=== PATIENT | male | born 1980 | race Caucasian/White ===

== ENCOUNTER 2017-06-14 10:19 | Emergency (ER) | payer OTHER ==
[~2017-06-14] VITALS: Ht 175.3 cm; Wt 104.3 kg
[~2017-06-14 10:19] MED LIST: CYCL10 PO; HYDACE5 PO
[2017-06-14] MEDS ORDERED: IBUP800 PO (11:31)
[2017-06-14] MEDS ORDERED: Prednisone20 MG PO (11:31)
[2017-06-14] MEDS ORDERED: Norco 5-325 Ta1 EACH PO (11:31)
[2017-06-14] MEDS ORDERED: CYCL10 PO (11:31)
== END 2017-06-14 11:43 | disposition home or self-care (01) ==
LOC: ER 10:19
DX: M54.12 Radiculopathy, cervical region (principal); F17.200 Nicotine dependence, unspecified, uncomplicated
CPT/HCPCS: 96372; 99283; J1885

== ENCOUNTER 2019-03-04 09:10 | Emergency (ER) | payer OTHER ==
[~2019-03-04] VITALS: Ht 175.3 cm; Wt 104.3 kg
[~2019-03-04 09:10] MED LIST changes: +IBUP800 PO; +Norco 5-325 Ta1 EACH PO; +Prednisone20 MG PO
[2019-03-04 10:05] LABS: Calcium, Ionized (POC) 1.12 mmol/L (1.10-1.46); Chloride (POC) 104 mmol/L (98-108); Creatinine (POC) 1.1 mg/dL (0.8-1.3); Glucose (ISTAT POC) 97 mg/dL (70-99); Hemoglobin (POC) 13.6 g/dL (13.5-17.5); Potassium (POC) 3.7 mmol/L (3.5-5.5); Sodium (POC) 139 mmol/L (135-148); Total CO2 (POC) 24 mmol/L (21-32)
[2019-03-04 10:08] LABS: Source, Urine Clean Catch
[2019-03-04 10:12] LABS: Blood, Urine 1+ (Neg); Glucose Qualitative, Urine Neg (Neg); Ketones, Urine 1+ (Neg); Leukocyte Esterase, Urine 1+ (Neg); Nitrite, Urine Neg (Neg); Protein, Urine 2+ (Neg); Specific Gravity, Urine 1.015 (1.003-1.022); Urobilinogen, Urine 2+ (Normal)
[2019-03-04 10:18] LABS: Appearance, Urine Hazy (Clear); Bilirubin, Urine 1+ (Neg); Color, Urine Amber (P-Yellow)
[2019-03-04 10:20] LABS: Red Blood Cells, Urine 0-2 /hpf (0-2)
[2019-03-04 10:21] LABS: Bacteria Mod /hpf; Mucus Mod (0-Heavy); Squamous Epithelial Cells Rare /hpf (Few)
[2019-03-04] MEDS ORDERED: Colace100 MG PO (10:33)
[2019-03-04] MEDS ORDERED: Bactrim Ds Tab1 EACH PO (10:33)
== END 2019-03-04 10:46 | disposition home or self-care (01) ==
LOC: ER 09:10
PROVIDERS: Emergency Medicine
DX: K59.00 Constipation, unspecified (principal); F17.200 Nicotine dependence, unspecified, uncomplicated
CPT/HCPCS: 51798; 80047; 81001; 85014; 87086; 99283-25; A9270-GY

== ENCOUNTER → 2019-03-20 | Outpatient (CLI) | payer OTHER ==
[~2019-03-20] MED LIST changes: +Bactrim Ds Tab1 EACH PO; +Colace100 MG PO
[2019-03-20 18:49] LABS: Adenovirus F 40/41 Not Detected (NOT DETECT); Astrovirus Not Detected (NOT DETECT); Campylobacter Sp Not Detected (NOT DETECT); Cryptosporidium Not Detected (NOT DETECT); Cyclospora Cayetanensis Not Detected (NOT DETECT); E. Coli O157 Not Detected (NOT DETECT); Entamoeba Histolytica Not Detected (NOT DETECT); Enteroaggregative E. coli-EAEC Not Detected (NOT DETECT); Enteropathogenic E. coli-EPEC Not Detected (NOT DETECT); Enterotoxigenic E. coli-ETEC Not Detected (NOT DETECT); Giardia Lamblia Not Detected (NOT DETECT); Norovirus GI/GII Not Detected (NOT DETECT); Plesiomonas Shigelloides Not Detected (NOT DETECT); Rotavirus A Not Detected (NOT DETECT); Salmonella Sp Not Detected (NOT DETECT); Sapovirus Not Detected (NOT DETECT); Shiga Toxin-prod E. coli-STEC Not Detected (NOT DETECT); Shigella/Enteroin E. coli-EIEC Not Detected (NOT DETECT); Vibrio Cholerae Not Detected (NOT DETECT); Vibrio Sp Not Detected (NOT DETECT); Yersinia Enterocolitica Not Detected (NOT DETECT)
== END ==
LOC: LAB EV 12:38
PROVIDERS: Physician Assistant Medical
DX: R19.7 Diarrhea, unspecified (principal)
CPT/HCPCS: 0097U

== ENCOUNTER 2019-04-05 09:12 | Inpatient (IN) | payer OTHER ==
[~2019-04-05] VITALS: Ht 172.7 cm; Wt 100.7 kg
[2019-04-05 10:05] LABS: Source, Urine Clean Catch
[2019-04-05 10:07] LABS: Bilirubin, Urine Neg (Neg); Blood, Urine 1+ (Neg); Glucose Qualitative, Urine Neg (Neg); Ketones, Urine Neg (Neg); Leukocyte Esterase, Urine 1+ (Neg); Nitrite, Urine Neg (Neg); Protein, Urine 2+ (Neg); Specific Gravity, Urine 1.015 (1.003-1.022); Urobilinogen, Urine NORM (Normal)
[2019-04-05 10:13] LABS: Appearance, Urine Clear (Clear); Color, Urine Yellow (P-Yellow)
[2019-04-05 10:17] LABS: Bacteria Few /hpf; Mucus Light (0-Heavy); Red Blood Cells, Urine 0-2 /hpf (0-2); Squamous Epithelial Cells Few /hpf (Few)
[2019-04-05 10:35] LABS: Calcium, Ionized (POC) 0.99 mmol/L (1.10-1.46); Chloride (POC) 96 mmol/L (98-108); Creatinine (POC) 1.3 mg/dL (0.8-1.3); Glucose (ISTAT POC) 110 mg/dL (70-99); Potassium (POC) 2.8 mmol/L (3.5-5.5); Sodium (POC) 134 mmol/L (135-148); Total CO2 (POC) 26 mmol/L (21-32)
[2019-04-05 11:09] LABS: BASOPHILS ABSOLUTE AUTO 0.07 K/mm3 (0.00-0.23); BASOPHILS PERCENT AUTO 1 % (0-2); EOSINOPHILS ABSOLUTE AUTO 0.06 K/mm3 (0.00-0.68); EOSINOPHILS PERCENT AUTO 1 % (0-6); Hematocrit 42.5 % (37.0-53.0); Hemoglobin 14.6 g/dL (13.5-17.5); IMMATURE GRAN ABSOLUTE AUTO 0.09 K/mm3 (0.00-0.10); IMMATURE GRAN PERCENT AUTO 1 % (0-1); LYMPHOCYTES ABSOLUTE AUTO 3.48 K/mm3 (0.84-5.20); LYMPHOCYTES PERCENT AUTO 39 % (21-46); MONOCYTES ABSOLUTE AUTO 0.81 K/mm3 (0.16-1.47); MONOCYTES PERCENT AUTO 9 % (4-13); Mean Corpuscular HGB 28.9 pg (26.0-34.0); Mean Corpuscular HGB Conc 34.4 g/dL (31.5-36.5); Mean Corpuscular Volume 84 fL (80-100); Mean Platelet Volume 8.5 fL (9.1-12.4); NEUTROPHILS ABSOLUTE AUTO 4.53 K/mm3 (1.96-9.15); NEUTROPHILS PERCENT AUTO 50 % (41-73); Platelet Count 408 K/mm3 (150-400); RDW Coefficient Variation 12.5 % (11.7-14.2); Red Blood Cell Count 5.06 M/mm3 (4.30-5.90); White Blood Cell Count 9.04 K/mm3 (4.00-11.30)
[2019-04-05 11:53] LABS: Albumin, Blood 2.5 g/dL (3.4-5.0); Anion Gap 9 mmol/L (6-16); Blood Urea Nitrogen 14 mg/dL (8-24); Bun/Creatinine Ratio 11.6 (12.0-20.0); CO2, Blood 25 mmol/L (21-32); Calcium, Blood 8.7 mg/dL (8.5-10.1); Chloride, Blood 100 mmol/L (98-108); Creatinine, Blood 1.21 mg/dL (0.60-1.20); Globulin, Blood 4.3 g/dL (2.2-4.0); Glomerular Filtration Rate >60 (60-); Glucose, Blood 96 mg/dL (70-99); Sodium, Blood 134 mmol/L (136-145); Total Protein, Blood 6.8 g/dL (6.4-8.2)
[2019-04-05 11:54] LABS: Alanine Aminotransfer (ALT/SGP 47 U/L (12-78); Albumin/Globulin Ratio 0.6 (0.8-1.8); Alk Phos 65 U/L (50-136); Aspartate Aminotrans (AST/SGOT 36 U/L (12-37); Bilirubin, Total 0.4 mg/dL (0.1-1.0)
[2019-04-05 11:59] LABS: Campylobacter Sp Not Detected (NOT DETECT)
[2019-04-05 12:00] LABS: Adenovirus F 40/41 Not Detected (NOT DETECT); Astrovirus Not Detected (NOT DETECT); Cryptosporidium Not Detected (NOT DETECT); Cyclospora Cayetanensis Not Detected (NOT DETECT); E. Coli O157 Not Detected (NOT DETECT); Entamoeba Histolytica Not Detected (NOT DETECT); Enteroaggregative E. coli-EAEC Not Detected (NOT DETECT); Enteropathogenic E. coli-EPEC Not Detected (NOT DETECT); Enterotoxigenic E. coli-ETEC Not Detected (NOT DETECT); Giardia Lamblia Not Detected (NOT DETECT); Norovirus GI/GII Not Detected (NOT DETECT); Plesiomonas Shigelloides Not Detected (NOT DETECT); Rotavirus A Not Detected (NOT DETECT); Salmonella Sp Not Detected (NOT DETECT); Sapovirus Not Detected (NOT DETECT); Shiga Toxin-prod E. coli-STEC Not Detected (NOT DETECT); Shigella/Enteroin E. coli-EIEC Not Detected (NOT DETECT); Vibrio Cholerae Not Detected (NOT DETECT); Vibrio Sp Not Detected (NOT DETECT); Yersinia Enterocolitica Not Detected (NOT DETECT)
--- NOTE | 2019-04-05 18:38 | NUR ---
PT ARRIVED TO THE FLOOR THIS AFTERNOON. PT ARRIVED AMBULATING. PT ALERT AND ORIENTED, INDEPENDENT IN THE ROOM. PT CONTINUES TO HAVE MULTIPLE LOOSE BM'S. PT STATES NO ADDITIONAL COMPLAINTS AT THIS TIME. CONSULT CALLED AND GI CONSULTED ON PT. PT CURRENTLY UP IN BED WATCHING TELEVISION.
[2019-04-05 21:02] LABS: Source, Urine Clean Catch
[2019-04-05 21:05] LABS: Bilirubin, Urine Neg (Neg); Blood, Urine Neg (Neg); Glucose Qualitative, Urine Neg (Neg); Ketones, Urine 1+ (Neg); Leukocyte Esterase, Urine 1+ (Neg); Nitrite, Urine Neg (Neg); Protein, Urine 2+ (Neg); Urobilinogen, Urine 1+ (Normal)
[2019-04-05 21:15] LABS: Appearance, Urine Clear (Clear); Color, Urine Yellow (P-Yellow)
[2019-04-05 21:16] LABS: Bacteria Mod /hpf; Red Blood Cells, Urine 0-2 /hpf (0-2); Squamous Epithelial Cells Few /hpf (Few)
[2019-04-06 05:08] LABS: BASOPHILS ABSOLUTE AUTO 0.04 K/mm3 (0.00-0.23); BASOPHILS PERCENT AUTO 1 % (0-2); EOSINOPHILS ABSOLUTE AUTO 0.12 K/mm3 (0.00-0.68); EOSINOPHILS PERCENT AUTO 2 % (0-6); Hematocrit 35.8 % (37.0-53.0); Hemoglobin 12.1 g/dL (13.5-17.5); IMMATURE GRAN ABSOLUTE AUTO 0.06 K/mm3 (0.00-0.10); IMMATURE GRAN PERCENT AUTO 1 % (0-1); LYMPHOCYTES ABSOLUTE AUTO 1.95 K/mm3 (0.84-5.20); LYMPHOCYTES PERCENT AUTO 39 % (21-46); MONOCYTES ABSOLUTE AUTO 0.58 K/mm3 (0.16-1.47); MONOCYTES PERCENT AUTO 12 % (4-13); Mean Corpuscular HGB 29.4 pg (26.0-34.0); Mean Corpuscular HGB Conc 33.8 g/dL (31.5-36.5); Mean Platelet Volume 8.6 fL (9.1-12.4); NEUTROPHILS ABSOLUTE AUTO 2.22 K/mm3 (1.96-9.15); NEUTROPHILS PERCENT AUTO 45 % (41-73); Platelet Count 293 K/mm3 (150-400); RDW Coefficient Variation 12.6 % (11.7-14.2); RDW Standard Deviation 40.4 fL (35.1-46.3); Red Blood Cell Count 4.12 M/mm3 (4.30-5.90); White Blood Cell Count 4.97 K/mm3 (4.00-11.30)
[2019-04-06 05:10] LABS: Mean Corpuscular Volume 87 fL (80-100)
[2019-04-06 05:33] LABS: Alanine Aminotransfer (ALT/SGP 34 U/L (12-78); Albumin/Globulin Ratio 0.6 (0.8-1.8); Alk Phos 49 U/L (50-136); Anion Gap 6 mmol/L (6-16); Aspartate Aminotrans (AST/SGOT 21 U/L (12-37); Bilirubin, Total 0.5 mg/dL (0.1-1.0); Blood Urea Nitrogen 12 mg/dL (8-24); Bun/Creatinine Ratio 9.6 (12.0-20.0); CO2, Blood 28 mmol/L (21-32); Calcium, Blood 7.7 mg/dL (8.5-10.1); Chloride, Blood 102 mmol/L (98-108); Creatinine, Blood 1.25 mg/dL (0.60-1.20); Globulin, Blood 3.6 g/dL (2.2-4.0); Glomerular Filtration Rate >60 (60-); Glucose, Blood 97 mg/dL (70-99); Sodium, Blood 136 mmol/L (136-145); Total Protein, Blood 5.6 g/dL (6.4-8.2)
--- NOTE | 2019-04-06 06:00 | NUR ---
SHIFT SUMMARY PATIENT UP TO THE BATHROOM AND BACK TO BED ALL NIGHT LONG. PATIENT REPORTS HAVING DIARRHEA WITH ARAMIS RED BLOOD FROM THE STRAINING HE HAS BEEN DOING TO GET THE STOOL OUT. HE ALSO REPORTS THESE EPISODES ARE BECOMING LESS FREQUENT AND WAS ABLE TO GET MORE WELL RESTED LAST NIGHT COMPARED TO PREVIOUS NIGHTS. IV IN LEFT FOREARM FLUSHED BUT IS PAINFUL, NO REDNESS OR SWELLING APPARENT. IV IN RIGHT HAND PATENT AND INFUSING. BED IN LOWEST POSITION WITH WHEELS LOCKED. CALL LIGHT AND BELONINGS WITHIN REACH.
--- NOTE | 2019-04-06 17:15 | NUR ---
PT HAS BEEN ALERT AND ORIENTED THROUGHOUT THIS SHIFT. PT HAS HAD MULTIPLE LOOSE BMS THIS SHIFT. PT INDEPENDENT IN THE ROOM. PT STATES PAIN WITH STRAINING WITH STOOL. PT TO START GO-LYTELY THIS EVENING IN PREPARATION FOR COLONOSCOPY TOMORROW. PT UP IN BED WATCHING TELEVISION. NO FURTHER NEEDS STATED AT THIS TIME.
[2019-04-07 04:45] LABS: BASOPHILS ABSOLUTE AUTO 0.02 K/mm3 (0.00-0.23); BASOPHILS PERCENT AUTO 1 % (0-2); EOSINOPHILS ABSOLUTE AUTO 0.11 K/mm3 (0.00-0.68); EOSINOPHILS PERCENT AUTO 3 % (0-6); Hematocrit 36.4 % (37.0-53.0); Hemoglobin 11.7 g/dL (13.5-17.5); IMMATURE GRAN ABSOLUTE AUTO 0.11 K/mm3 (0.00-0.10); IMMATURE GRAN PERCENT AUTO 3 % (0-1); LYMPHOCYTES ABSOLUTE AUTO 1.37 K/mm3 (0.84-5.20); LYMPHOCYTES PERCENT AUTO 35 % (21-46); MONOCYTES ABSOLUTE AUTO 0.44 K/mm3 (0.16-1.47); MONOCYTES PERCENT AUTO 11 % (4-13); Mean Corpuscular HGB 28.3 pg (26.0-34.0); Mean Corpuscular HGB Conc 32.1 g/dL (31.5-36.5); Mean Corpuscular Volume 88 fL (80-100); Mean Platelet Volume 8.3 fL (9.1-12.4); NEUTROPHILS ABSOLUTE AUTO 1.84 K/mm3 (1.96-9.15); NEUTROPHILS PERCENT AUTO 47 % (41-73); Platelet Count 236 K/mm3 (150-400); RDW Coefficient Variation 12.7 % (11.7-14.2); RDW Standard Deviation 40.6 fL (35.1-46.3); Red Blood Cell Count 4.14 M/mm3 (4.30-5.90); White Blood Cell Count 3.89 K/mm3 (4.00-11.30)
[2019-04-07 05:05] LABS: Alanine Aminotransfer (ALT/SGP 36 U/L (12-78); Albumin/Globulin Ratio 0.6 (0.8-1.8); Alk Phos 47 U/L (50-136); Anion Gap 5 mmol/L (6-16); Aspartate Aminotrans (AST/SGOT 33 U/L (12-37); Bilirubin, Total 0.2 mg/dL (0.1-1.0); Blood Urea Nitrogen 5 mg/dL (8-24); Bun/Creatinine Ratio 4.8 (12.0-20.0); CO2, Blood 25 mmol/L (21-32); Calcium, Blood 7.6 mg/dL (8.5-10.1); Chloride, Blood 110 mmol/L (98-108); Creatinine, Blood 1.04 mg/dL (0.60-1.20); Globulin, Blood 3.3 g/dL (2.2-4.0); Glomerular Filtration Rate >60 (60-); Glucose, Blood 92 mg/dL (70-99); Potassium, Blood 3.7 mmol/L (3.5-5.5); Sodium, Blood 140 mmol/L (136-145); Total Protein, Blood 5.3 g/dL (6.4-8.2)
--- NOTE | 2019-04-07 05:26 | NUR ---
SHIFT SUMMARY: VSS. AFEB. A/OX4. DRINKING GO-LYTELY IN PREP FOR COLONOSCOPY TODAY. FREQUENT LIQUID BMS. REPORTS SOME ARAMIS BLOOD IN STOOLS TONIGHT. SLEPT LITTLE DUE TO FREQUENCY OF BMS. NO REQUEST FOR PRN ANALGESICS. ABD MILDLY DISTENDED AND TENDER WITH PALAPATION. BT ACTIVE X 4. UP INDEPENDENTLY IN ROOM. MAKES NEEDS KNOWN WITHOUT DIFFICULTY.
--- NOTE | 2019-04-07 12:08 | NUR ---
04/07/19 1208 Layla Guthrie PATIENT DETERMINED TO BE ASA APPROPRIATE FOR PROPOFOL SEDATION PRIOR TO START OF PROCEDURE BY DR. MAURICE. 3-LEAD EKG REVIEWED WITH PHYSICIAN PRIOR TO START OF PROCEDURE. PATIENT CONFIRMS NPO STATUS AND AGREES WITH SCHEDULED PROCEDURE. History, Chart, Medications and Allergies reviewed before start of procedure. MONITOR INTACT WITH CONTINUOUS PULSE OXIMETRY AND INTERMITTENT BP. O2 VIA N/C INTACT THROUGHOUT SEDATION/PROCEDURE, 3L.
--- NOTE | 2019-04-07 16:38 | NUR ---
SHIFT SUMMARY: PT HAS BEEN A/O X 4 WITH NO C/O PAIN BUT DOES HAVE ABDOMINAL TENDERNESS WITH PALPATION AND ONGOING FREQUENT LOOSE STOOLS. PT COMPLETED BOWEL PREP BEFORE 8 AM THIS MORNING AN IV ABO RAN WITH NO ISSUES OBSERVED. PT WENT FOR COLONSCOPY AND PER REPORT FROM SURGICAL NURSE THE PROCEDURE WENT WELL AND PT RETURNED TO HIS ROOM AT BASELINE. PT CONTINUES ON IV FLUIDS/ABO ORDERED. HE IS IND IN HIS ROOM AND SELF AMBULATES TO THE TOILET. PT MOM HAS BEEN AT THE BEDSIDE ON AND OFF THROUGHOUT THE DAY. PT IS ABLE TO MAKE HIS NEEDS KNOWN AND IS RESTING IN BED WITH CALL LIGHT IN REACH.
[2019-04-07 18:53] LABS: BASOPHILS ABSOLUTE AUTO 0.03 K/mm3 (0.00-0.23); BASOPHILS PERCENT AUTO 1 % (0-2); EOSINOPHILS ABSOLUTE AUTO 0.01 K/mm3 (0.00-0.68); EOSINOPHILS PERCENT AUTO 0 % (0-6); Hematocrit 40.1 % (37.0-53.0); IMMATURE GRAN ABSOLUTE AUTO 0.16 K/mm3 (0.00-0.10); IMMATURE GRAN PERCENT AUTO 3 % (0-1); LYMPHOCYTES ABSOLUTE AUTO 0.73 K/mm3 (0.84-5.20); LYMPHOCYTES PERCENT AUTO 13 % (21-46); MONOCYTES ABSOLUTE AUTO 0.11 K/mm3 (0.16-1.47); MONOCYTES PERCENT AUTO 2 % (4-13); Mean Corpuscular HGB 28.9 pg (26.0-34.0); Mean Corpuscular HGB Conc 32.4 g/dL (31.5-36.5); Mean Corpuscular Volume 89 fL (80-100); Mean Platelet Volume 8.3 fL (9.1-12.4); NEUTROPHILS ABSOLUTE AUTO 4.64 K/mm3 (1.96-9.15); NEUTROPHILS PERCENT AUTO 82 % (41-73); Platelet Count 276 K/mm3 (150-400); RDW Coefficient Variation 12.6 % (11.7-14.2); RDW Standard Deviation 41.2 fL (35.1-46.3); White Blood Cell Count 5.68 K/mm3 (4.00-11.30)
--- NOTE | 2019-04-07 19:19 | NUR ---
PT TOLERATED REG DIET DINNER
[2019-04-08 04:37] LABS: BASOPHILS ABSOLUTE AUTO 0.03 K/mm3 (0.00-0.23); BASOPHILS PERCENT AUTO 1 % (0-2); EOSINOPHILS ABSOLUTE AUTO 0.02 K/mm3 (0.00-0.68); EOSINOPHILS PERCENT AUTO 0 % (0-6); Hematocrit 35.4 % (37.0-53.0); Hemoglobin 11.5 g/dL (13.5-17.5); IMMATURE GRAN ABSOLUTE AUTO 0.12 K/mm3 (0.00-0.10); IMMATURE GRAN PERCENT AUTO 2 % (0-1); LYMPHOCYTES ABSOLUTE AUTO 1.72 K/mm3 (0.84-5.20); LYMPHOCYTES PERCENT AUTO 28 % (21-46); MONOCYTES ABSOLUTE AUTO 0.45 K/mm3 (0.16-1.47); MONOCYTES PERCENT AUTO 7 % (4-13); Mean Corpuscular HGB 28.5 pg (26.0-34.0); Mean Corpuscular HGB Conc 32.5 g/dL (31.5-36.5); Mean Corpuscular Volume 88 fL (80-100); Mean Platelet Volume 8.5 fL (9.1-12.4); NEUTROPHILS ABSOLUTE AUTO 3.91 K/mm3 (1.96-9.15); NEUTROPHILS PERCENT AUTO 63 % (41-73); Platelet Count 258 K/mm3 (150-400); RDW Coefficient Variation 12.5 % (11.7-14.2); RDW Standard Deviation 40.2 fL (35.1-46.3); Red Blood Cell Count 4.03 M/mm3 (4.30-5.90); White Blood Cell Count 6.25 K/mm3 (4.00-11.30)
[2019-04-08 04:54] LABS: Alanine Aminotransfer (ALT/SGP 39 U/L (12-78); Albumin/Globulin Ratio 0.6 (0.8-1.8); Alk Phos 45 U/L (50-136); Anion Gap 6 mmol/L (6-16); Aspartate Aminotrans (AST/SGOT 35 U/L (12-37); Bilirubin, Total 0.1 mg/dL (0.1-1.0); Blood Urea Nitrogen 5 mg/dL (8-24); Bun/Creatinine Ratio 5.2 (12.0-20.0); CO2, Blood 22 mmol/L (21-32); Calcium, Blood 7.8 mg/dL (8.5-10.1); Chloride, Blood 115 mmol/L (98-108); Creatinine, Blood 0.96 mg/dL (0.60-1.20); Globulin, Blood 3.3 g/dL (2.2-4.0); Glomerular Filtration Rate >60 (60-); Glucose, Blood 104 mg/dL (70-99); Potassium, Blood 4.4 mmol/L (3.5-5.5); Sodium, Blood 143 mmol/L (136-145); Total Protein, Blood 5.3 g/dL (6.4-8.2)
--- NOTE | 2019-04-08 05:01 | NUR ---
SHIFT SUMMARY: VSS. AFEB. A/OX4. REPORTS FEELING MORE IN CONTROL OF BM- NOW HAS ENOUGH TIME BETWEEN URGE TO VOID BOWELS AND MAKING IT TO THE TOILET. REPORTS HE HAS HAD NO N/V WITH ORAL INTAKE. NO COMPLAINTS OF ABDOMINAL OR RECTAL PAIN TONIGHT. HAS SLEPT BETTER AND IS IN BETTER SPIRITS OVERALL TONIGHT. UP INDEPENDENTLY IN ROOM. COMMUNICATING NEEDS.
[2019-04-08] MEDS ORDERED: ACET325 PO (10:53)
[2019-04-08] MEDS ORDERED: Acetaminophen-1 EAC1 PO (10:54)
[2019-04-08] MEDS ORDERED: LOPE2C PO (10:54)
[2019-04-08] MEDS ORDERED: ASACOL HD800 MG PO (10:55)
[2019-04-08] MEDS ORDERED: METO10 PO (10:57)
[2019-04-08] MEDS ORDERED: Rowasa 4 G4 GM/60 ML PR (10:57)
[2019-04-08] MEDS ORDERED: ONDA4 PO (10:58)
[2019-04-08] MEDS ORDERED: PANT20 PO (10:59)
[2019-04-08] MEDS ORDERED: Prednisone10 MG PO (11:00)
[2019-04-08] MEDS ORDERED: POTCHL20ER PO (11:00)
[2019-04-08] MEDS ORDERED: Florastor250 MG PO (11:01)
--- NOTE | 2019-04-08 11:51 | NUR ---
PATIENT D/C'D TO HOME WITH FAMILY. RX MEDICATIONS FAXED TO [facility] AND HARD SCRIPT FOR TYLENOL WITH CODEINE GIVEN TO PATIENT. MED REC EDIT OF PRENISONE FAXED TO [facility] AND PATIENT INSTRUCTED ON CORRECT DOSAGE AT D/C. D/C INSTRUCTIONS AND EDUCATION DISCUSSED WITH PATIENT AND COPY PROVIDED. PATIENT DENIES ANY FURTHER QUESTIONS OR CONCERNS. CARE MANAGERS TO CALL PATIENT WITH F/U APPOINTMENTS AND HELP HIM ESTABLISH A NEW PCP.
--- NOTE | 2019-04-08 13:48 | NUR ---
MESALAMINE PRE-AUTH: THIS RN RECEIVED CALL FROM PT WHILE TRYING TO FILL HIS PRESCRIPTIONS AT [facility] AFTER HIS DISCHARGE. PER PT, MESALAMINE REQUIRES PRE-AUTH FROM HIS INSURANCE. THIS RN CALLED AND SPOKE WITH DR. MAURICE REGARDING OTHER OPTIONS FOR PT. PER DR. MAURICE, PT WILL BE FINE TO NOT TAKE MESALAMINE AT THIS TIME LONG IS HE TAKING THE PREDISONE PRESCRIBED. HE ALSO INSTRUCTED TO HAVE THE PT CALL HIS OFFICE FIRST THING IN THE MORNING TO GET THE PRE-AUTH GOING. THIS RN RELAYED INFORMATION TO PT AND PROVIDED HIM THE PHONE NUMBER TO DR. MAURICE'S OFFICE. PT VERBALIZED UNDERSTANDING OF INSTRUCTIONS.
== END 2019-04-08 11:49 | disposition home or self-care (01) | DRG 386 ==
LOC: ER 09:12 → MEDS 14:03
PROVIDERS: Emergency Medicine; Internal Medicine; Physician Assistant; Student in an Organized Health Care Education/Training Program; ADMIT Family Medicine
PROC: 0DDL8ZX Extraction of Transverse Colon, Via Natural or Artificial Opening Endoscopic, Diagnostic (ICD-10-PCS; 2019-04-07)
PROC: 0DDN8ZX Extraction of Sigmoid Colon, Via Natural or Artificial Opening Endoscopic, Diagnostic (ICD-10-PCS; 2019-04-07)
PROC: 0DDH8ZX Extraction of Cecum, Via Natural or Artificial Opening Endoscopic, Diagnostic (ICD-10-PCS; principal; 2019-04-07 11:30)
DX: K51.90 Ulcerative colitis, unspecified, without complications (principal); E87.1 Hypo-osmolality and hyponatremia; F17.210 Nicotine dependence, cigarettes, uncomplicated; E87.6 Hypokalemia; E86.0 Dehydration; E88.09 Other disorders of plasma-protein metabolism, not elsewhere classified
CPT/HCPCS: 0097U; 36415; 74177; 80047; 80053; 81001; 83605; 83690; 85014; 85025; 87086; 88305; 96365-59; 96375; 99285-25; A9270; C9113; J0744; J2405; J2704; J3010; J3480; J7050; J7120; J7512; Q9967

== ENCOUNTER → 2020-03-20 | Outpatient (CLI) | payer OTHER ==
[~2020-03-20] MED LIST changes: +ACET325 PO; +ASACOL HD800 MG PO; +Acetaminophen-1 EAC1 PO; +Balsalazide Di750 MG PO; +Florastor250 MG PO; +LOPE2C PO; +METO10 PO; +ONDA4 PO; +PANT20 PO; +POTCHL20ER PO; +Prednisone10 MG PO; +Rowasa 4 G4 GM/60 ML PR
== END | disposition home or self-care (01) ==
LOC: LAB EV 18:29 → LAB SHORT 18:29
DX: J02.9 Acute pharyngitis, unspecified (principal)
CPT/HCPCS: 87081

== ENCOUNTER → 2020-12-04 | Outpatient (CLI) | payer OTHER ==
[2020-12-07 09:27] LABS: CHLAMYDIA TRACHOMATIS, NAA Negative
== END | disposition home or self-care (01) ==
LOC: LAB SHORT 12:25 → LAB FUT 11-11 10:00
PROVIDERS: Physician Assistant
DX: Z20.2 Contact with and (suspected) exposure to infections with a predominantly sexual mode of transmission (principal)
CPT/HCPCS: 87491; 87591